=== PATIENT | female | born 1995 | race Caucasian/White ===

== ENCOUNTER 2017-02-03 20:32 | Emergency (ER) | payer OTHER ==
[~2017-02-03] VITALS: Ht 185.4 cm; Wt 78.2 kg
[2017-02-03 20:41] VITALS: TEMP 36.3; Ht 185.4 cm; Wt 78.2 kg
[2017-02-03] MEDS ORDERED: HYDROmorphone INJ 0.5 MG/0.5 ML SYR IV STA (20:43)
[2017-02-03 21:18] LABS: BASO % 0.6 %; BASO ABS # 0.05 K/uL (0-0.2); COMPLETE YES; HEMATOCRIT 38.8 % (37-47); IG% 0.1 %; LYMPH % 29.9 %; LYMPH ABS # 2.34 K/uL (1.2-3.4); MEAN CELL VOLUME 87.6 fL (80-100); MEAN CORPUSCULAR HEMOGLOBIN 29.6 pg (25-34); MEAN CORPUSCULAR HGB CONC 33.8 g/dl (32-36); MEAN PLATELET VOLUME 10.7 fL (7.4-10.4); MONO % 6.5 %; NEUT % 61.9 %; PLATELET COUNT 252 K/uL (130-400); RED BLOOD COUNT 4.43 M/uL (4.2-5.4); WHITE BLOOD COUNT 7.82 K/uL (4.8-10.8)
[2017-02-03 21:21] LABS: ISTAT CREATININE 1.1 mg/dl (0.6-1.3); ISTAT HEMOGLOBIN 13.6 g/dl (12.0-16.0); ISTAT IONIZED CALCIUM 1.2 mmol/l (1.12-1.32)
[2017-02-03 21:37] LABS: BUN/CREATININE RATIO 11.8 (10-20); CALCIUM 9.4 mg/dl (8.5-10.1); CREATININE 0.98 mg/dl (0.60-1.20); POTASSIUM 3.5 mmol/L (3.5-5.1)
[2017-02-03 21:38] LABS: URINE APPEARANCE CLEAR (CLEAR); URINE BILIRUBIN NEG (NEG); URINE COLOR YELLOW; URINE NITRITE NEG (NEG); URINE SPECIFIC GRAVITY 1.011 (1.000-1.030); UROBILINOGEN NEG (NEG)
[2017-02-03 21:39] LABS: INR 0.9 (0.9-1.1); PARTIAL THROMBOPLASTIN RATIO 1.1
[2017-02-03] MEDS ORDERED: OPTIRAY 320 IV PRN (21:45)
[2017-02-03 21:47] LABS: MANUAL MICROSCOPIC REQUIRED? NO; REVIEW REQ? NO
--- NOTE | 2017-02-03 21:52 | DIAGNOSTIC IMAGING REPORT ---
L RIBS UNILATERAL WITH PA CHEST CLINICAL HISTORY: Left-sided rib pain. Short of breath. COMPARISON STUDY: None. FINDINGS: No rib fractures. No pneumothorax. The lungs are clear. The heart is normal in size. IMPRESSION: No rib fractures. No pneumothorax. Electronically signed by: Dom Olivier M.D. 02/03/2017 9:50 PM Dictated Date/Time: 02/03/2017 9:49 PM
--- NOTE | 2017-02-03 22:01 | DIAGNOSTIC IMAGING REPORT ---
CHEST CTA for PULMONARY ARTERIES CT DOSE: 248.72 mGy.cm HISTORY: Left-sided chest pain. TECHNIQUE: Multiaxial CT images of the chest were performed following the intravenous administration of contrast to evaluate the pulmonary arteries. Maximal intensity projection images were also obtained. A dose lowering technique was utilized adhering to the principles of ALARA. COMPARISON STUDY: None. FINDINGS: There is a normal caliber thoracic aorta with no evidence for dissection. There is no evidence for pulmonary embolus. No pleural effusions. No pneumothorax. The liver and spleen are unremarkable. No mediastinal or hilar lymphadenopathy. The central airways are patent. A 2 mm subpleural nodular density within the lingula on image 114. Otherwise, the lungs are clear IMPRESSION: No evidence for pulmonary embolus. Electronically signed by: Dom Olivier M.D. 02/03/2017 9:59 PM Dictated Date/Time: 02/03/2017 9:51 PM
[2017-02-03] MEDS ORDERED: KETOROLAC TROMETHAMINE 30 MG/ML VIAL IV STA (22:12)
[2017-02-03] MEDS ORDERED: OXYCODONE IR HOME PACK PO ONE (22:15)
[2017-02-03 22:34] VITALS: BP 119/74; PULSE 65; O2SAT 97
[2017-02-03] MEDS ORDERED: ETONMIS VAGRING (22:39)
[2017-02-03] MEDS ORDERED: LISD50CA4 PO (22:39)
--- NOTE | 2017-02-03 23:29 | EMERGENCY ROOM VISIT NOTE ---
History Report prepared by Holly: Rosa M Leroy Under the Supervision of: Dr. Ruben Webb M.D. First contact with patient: 20:37 Stated Complaint: breathing difficulty History of Present Illness The patient is a 21 year old female who presents to the Emergency Room with complaints of worsening rib pain starting two days ago. The patient states that two days ago she was hit in the chest while playing basketball. She states that it knocked the wind out of her. She reports that she played a game today and felt fine. She states that on the way home on the bus she woke up from sleep shaking and sweating. She states that she took some of her layers off and became dizzy and nauseous. She reports that she has had some rib pain since she the first incident, but it became worse during this episode. She states that it became painful to breathe during this episode. She states that she felt like she was in and out of it. She denies passing out. She did start having tingling in her hands and feet. She notes that she always has left rib pain every time she gets the wind knocked out of her since she was a kid. The patient describes her chest pain as tight and stabbing. She denies feeling like she has a fever. She notes that she has an NuvaRing in place and denies ever having a clot in her legs or lungs. The patient states that it hurts to move. She denies abdominal pain and vomiting. The nurse notes that the patient was given 100 of Fentanyl in the ambulance. Source of History: patient, nursing staff Onset: two days ago Position: other (ribs) Quality: other (tightness) Timing: worsening Modifying Factors (Worsening): breathing, movement Associated Symptoms: + diaphoresis, + chest pain, + nausea, No fevers, No vomiting, No abdominal pain Note: The patient complains of shaking, dizziness Review of Systems See HPI for pertinent positives & negatives. A total of 10 systems reviewed and were otherwise negative. Past Medical & Surgical Medical Problems: (1) No Known Active Medical Problems Family History No pertinent family history Social History Drug Use: none Marital Status: single Housing Status: lives with roommate Occupation Status: student Current/Historical Medications Scheduled Etonogestrel/Ethinyl Estradiol (Nuvaring), 1 EA VAGRING MONTHLY Lisdexamfetamine Dimesylate (Vyvanse), 50 MG PO DAILY Allergies Coded Allergies: No Known Allergies (Unverified , 02/03/17) Physical Exam Vital Signs Date Time Temp Pulse Resp B/P (MAP) Pulse Ox O2 Delivery O2 Flow Rate FiO2 02/03/17 22:34 65 18 119/74 97 Room Air 02/03/17 21:30 76 18 129/85 97 Room Air 02/03/17 20:42 86 02/03/17 20:41 36.3 74 18 138/109 95 Room Air Physical Exam Constitutional: Vital signs reviewed. Eyes: Pupils are equal round reactive to light. Conjunctiva are noninjected. ENT: Pharynx is clear without erythema or exudate. Mucous membranes are moist. Neck supple without meningeal signs. Respiratory: Clear to auscultation bilaterally. Breath sounds are equal bilaterally. Cardiovascular: Regular rate and rhythm. No rubs or gallops. GI: Soft, nondistended and nontender. Bowel sounds are present. Musculoskeletal: No peripheral edema. No lower extremity tenderness. Left anterior rib tenderness without crepitus. Integumentary: No cyanosis. Neurological: The patient is awake and alert. No focal deficits. Psychiatric: Anxious. Medical Decision & Procedures ER Provider Diagnostic Interpretation: Radiology results as stated below per my review and the radiologist's interpretation: L RIBS UNILATERAL WITH PA CHEST CLINICAL HISTORY: Left-sided rib pain. Short of breath. COMPARISON STUDY: None. FINDINGS: No rib fractures. No pneumothorax. The lungs are clear. The heart is normal in size. IMPRESSION: No rib fractures. No pneumothorax. Electronically signed by: Dom Olivier M.D. 02/03/2017 9:50 PM Dictated Date/Time: 02/03/2017 9:49 PM CHEST CTA for PULMONARY ARTERIES CT DOSE: 248.72 mGy.cm HISTORY: Left-sided chest pain. TECHNIQUE: Multiaxial CT images of the chest were performed following the intravenous administration of contrast to evaluate the pulmonary arteries. Maximal intensity projection images were also obtained. A dose lowering technique was utilized adhering to the principles of ALARA. COMPARISON STUDY: None. FINDINGS: There is a normal caliber thoracic aorta with no evidence for dissection. There is no evidence for pulmonary embolus. No pleural effusions. No pneumothorax. The liver and spleen are unremarkable. No mediastinal or hilar lymphadenopathy. The central airways are patent. A 2 mm subpleural nodular density within the lingula on image 114. Otherwise, the lungs are clear IMPRESSION: No evidence for pulmonary embolus. Electronically signed by: Dom Olivier M.D. 02/03/2017 9:59 PM Dictated Date/Time: 02/03/2017 9:51 PM Laboratory Results 02/03/17 20:53 Red Blood Count 4.43, Mean Corpuscular Volume 87.6, Mean Corpuscular Hemoglobin 29.6, Mean Corpuscular Hemoglobin Concent 33.8, Mean Platelet Volume 10.7, Neutrophils (%) (Auto) 61.9, Lymphocytes (%) (Auto) 29.9, Monocytes (%) (Auto) 6.5, Eosinophils (%) (Auto) 1.0, Basophils (%) (Auto) 0.6, Neutrophils # (Auto) 4.83, Lymphocytes # (Auto) 2.34, Monocytes # (Auto) 0.51, Eosinophils # (Auto) 0.08, Basophils # (Auto) 0.05 02/03/17 20:53 Test 02/03/17 20:43 02/03/17 20:53 02/03/17 21:10 02/03/17 21:28 White Blood Count 7.82 K/uL (4.8-10.8) Red Blood Count 4.43 M/uL (4.2-5.4) Hemoglobin 13.1 g/dL (12.0-16.0) Hematocrit 38.8 % (37-47) Mean Corpuscular Volume 87.6 fL (80-100) Mean Corpuscular Hemoglobin 29.6 pg (25-34) Mean Corpuscular Hemoglobin Concent 33.8 g/dl (32-36) Platelet Count 252 K/uL (130-400) Mean Platelet Volume 10.7 fL (7.4-10.4) Neutrophils (%) (Auto) 61.9 % Lymphocytes (%) (Auto) 29.9 % Monocytes (%) (Auto) 6.5 % Eosinophils (%) (Auto) 1.0 % Basophils (%) (Auto) 0.6 % Neutrophils # (Auto) 4.83 K/uL (1.4-6.5) Lymphocytes # (Auto) 2.34 K/uL (1.2-3.4) Monocytes # (Auto) 0.51 K/uL (0.11-0.59) Eosinophils # (Auto) 0.08 K/uL (0-0.5) Basophils # (Auto) 0.05 K/uL (0-0.2) RDW Standard Deviation 42.6 fL (36.4-46.3) RDW Coefficient of Variation 13.2 % (11.5-14.5) Immature Granulocyte % (Auto) 0.1 % Immature Granulocyte # (Auto) 0.01 K/uL (0.00-0.02) Prothrombin Time 10.0 SECONDS (9.0-12.0) Prothromb Time International Ratio 0.9 (0.9-1.1) Activated Partial Thromboplast Time 27.3 SECONDS (21.0-31.0) Partial Thromboplastin Ratio 1.1 Est Creatinine Clear Calc Drug Dose 108.1 ml/min Estimated GFR () 95.6 Estimated GFR (Non- 82.5 BUN/Creatinine Ratio 11.8 (10-20) Calcium Level 9.4 mg/dl (8.5-10.1) Troponin I < 0.015 ng/ml (0-0.045) Bedside Hemoglobin 13.6 g/dl (12.0-16.0) Bedside Hematocrit 40 % (37-47) Bedside Sodium 140 mEq/L (135-144) Bedside Potassium 3.7 mEq/L (3.3-5.0) Bedside Chloride 104 mEq/L (101-112) Bedside Total CO2 27 mEq/l (24-31) Anion Gap 14.0 mmol/L (16-25) Bedside Blood Urea Nitrogen 12 mg/dl (7-18) Bedside Creatinine 1.1 mg/dl (0.6-1.3) Bedside Glucose (other) 79 mg/dl (70-99) Bedside Ionized Calcium (Mary) 1.20 mmol/l (1.12-1.32) Urine Color YELLOW Urine Appearance CLEAR (CLEAR) Urine pH 8.0 (4.5-7.5) Urine Specific [place] 1.011 (1.000-1.030) Urine Protein NEG (NEG) Urine Glucose (UA) NEG (NEG) Urine Ketones NEG (NEG) Urine Occult Blood NEG (NEG) Urine Nitrite NEG (NEG) Urine Bilirubin NEG (NEG) Urine Urobilinogen NEG (NEG) Urine Leukocyte Esterase NEG (NEG) Laboratory results as reviewed by me. Medications Administered Medications (Trade) Dose Ordered Sig/Abel Route Start Time Stop Time Status Last Admin Dose Admin Hydromorphone HCl (Dilaudid Inj) 0.5 mg NOW STAT IV 02/03/17 20:43 02/03/17 20:45 DC 02/03/17 21:26 0.5 MG Ketorolac Tromethamine (Toradol Inj) 10 mg NOW STAT IV 02/03/17 22:12 02/03/17 22:13 DC 02/03/17 22:34 10 MG Oxycodone HCl (Roxicodone Immediate Rel 5MG Home Pack) 1 homepack UD ONCE PO 02/03/17 22:15 02/03/17 22:16 DC 02/03/17 22:34 1 HOMEPACK ECG Indication: SOB/dyspnea Rate (beats per minute): 87 Rhythm: sinus rhythm Findings: no acute ischemic change, no ectopy ED Course 2036: The patient was evaluated in room B11B. A complete history and physical exam was performed. 2042: Ordered Dilaudid Inj 0.5 mg IV. 2127: I reevaluated the patient and the pain is getting worse. She just got her Dilaudid. I talked to her about her test results and recommended a CT angio to rule out a PE. The patient was agreeable. 2205: I reevaluated the patient and she complains of lower rib tenderness still. On re-exam she is weigh box tender over the lower rib. There is no deformity to the rib and no crepitus. 3: I reevaluated the patient and reexamined her again. I talked to the certified personal trainer and her patient. I addressed all of their concerns. She reaffirms that she has no abdominal pain and that it is all in her rib which is tender to palpation. I discussed tonight's findings with her. She verbalized agreement of the treatment plan. The patient was discharged home. Medical Decision This is a 21-year-old female who presents with left-sided chest pain. Differential diagnosis includes rib fracture, pneumothorax, pulmonary embolism, pleurisy, hyperventilation syndrome. I did perform a limited focused review of portions of the patient's old chart on the electronic medical record. The patient has had no recent pertinent visits to this hospital. I did provide prehospital medical command for the patient. She was treated with IV fentanyl 50 g 2 and IV Zofran. I did evaluate the patient as noted above. The patient suffered a chest injury 2 days ago. She has had intermittent mild chest pain at that time. Today she played basket ball came and had no problems but then on the bus ride home developed sudden severe left- sided chest pain. She does use a NuvaRing. Breath sounds are equal bilaterally on examination. She does have rib tenderness on the left side. IV access was established. The patient was placed on a continuous playground monitor. I did order and personally review the patient's 12-lead EKG and rib/ chest x-ray as described above. There is no evidence of rib fracture or pneumothorax. I did order and review the patient's blood work as noted in the electronic medical record. Troponin and d-dimer are negative. I did treat the patient with Dilaudid 0.5 mg IV. I did reassess the patient and the patient had continued pain on left side. Because of her persistent pain I did recommend CT scanning which she agreed to. I did order a CT of the chest. I did review the images myself as well as the radiology report as described above. There is no evidence of pulmonary embolism. The visualized portions of the liver and spleen did not show any evidence of injury. I did discuss the test results with the patient and her certified personal trainer. She reiterates again that she has continued pain to her lower rib which is tender to palpation. She denies having any abdominal pain and has no tenderness to palpation of her abdomen. I suspect at this time that she suffered a rib injury and can even possibly have a occult fracture. I did recommend anti-inflammatories and close follow up with her doctor. She was given Toradol 10 mg IV here and discharged with a oxycodone home pack. Medication Reconcilliation Current Medication List: was personally reviewed by me Blood Pressure Screening Patient's blood pressure: Elevated blood pressure Blood pressure disposition: Referred to PCP Impression Primary Impression: Rib pain on left side Scribe Attestation The scribe's documentation has been prepared under my direct and personally reviewed by me in its entirety. I confirm that the note above accurately reflects all work, treatment, procedures, and medical decision making performed by me. Departure Information Dispostion Home / Self-Care Referrals No Doctor, Assigned (PCP) Forms HOME CARE DOCUMENTATION FORM, IMPORTANT VISIT INFORMATION, WORK / SCHOOL INSTRUCTIONS Additional Instructions You have been examined and treated today on an emergency basis only. This is not a substitute for, or an effort to provide, complete comprehensive medical care. It is impossible to recognize and treat all injuries or illnesses in a single emergency department visit. It is therefore important that you follow up closely with your physician. Call as soon as possible for an appointment. Return for worsening symptoms or if you develop fever, vomiting, abdominal pain or any other concerning symptoms.
== END 2017-02-03 22:53 | disposition home or self-care (01) ==
LOC: C.EDB 20:33
DX: R07.81 Pleurodynia (principal); Z97.5 Presence of (intrauterine) contraceptive device